=== PATIENT | female | born 1950 | race American Indian/Alaskan Native ===

== ENCOUNTER → 2018-10-04 | Outpatient (CLI) | payer BC ==
[~2018-10-04] MED LIST: IOPAMIDOL 370 MG/ML 200 ML INFUS..BTL INJ ONE; SODIUM CHLORIDE 0.9% 50ML 50 ML ONE
[2018-10-04 12:04] LABS: BLOOD UREA NITROGEN 14 mg/dL (7-26); BUN/CREATININE RATIO 20 (6-25); CREATININE, SERUM 0.71 mg/dL (0.57-1.11); EST GLOMERULAR FILTRATION RATE > 60 ML/MIN (60-)
--- NOTE | 2018-10-04 13:35 | Diagnostic Imaging Report ---
EXAM: CT Chest WITH intravenous contrast 10/04/2018 11:12 AM INDICATION: Reported history of cavitary lung lesion COMPARISON: None TECHNIQUE: Chest was scanned utilizing a multidetector helical scanner from the lung apex through the level of the adrenal glands after administration of IV contrast. Coronal and sagittal reformations were obtained. Routine protocol was performed. IV CONTRAST: 100mL Isovue 370 RADIATION DOSE: Total DLP: 192.6 mGy*cm. Dose modulation, iterative reconstruction, and/or weight based adjustment of the mA/kV was utilized to reduce the radiation dose to as low as reasonably achievable. COMPLICATIONS: None FINDINGS: LINES/ TUBES: None. LUNGS AND AIRWAYS: The central airways are patent. There is an approximately 6.6 x 5.9 cm left apical cavitary mass with associated extensive apical posterior left upper lobe consolidation. There is bilateral upper lobe predominant centrilobular emphysema and areas of paraseptal emphysema. 6 mm right middle lobe anterior subpleural nodule (series 2 image 87) 3 mm right lower lobe nodule (series 2 image 72). PLEURA: The pleural spaces are clear. HEART AND MEDIASTINUM: Normal thyroid gland. Enlarged aortopulmonary window lymph nodes measure up to 14 x 11 mm (series 2 image 52. Right hilar lymphadenopathy to 16 x 10 mm. Prominent left axillary lymph node measuring 11 x 9 mm (series 2 image 22). The heart is not enlarged. No pericardial effusion. Atherosclerotic calcifications of the coronary arteries and thoracic aorta. UPPER ABDOMEN: Limited contrast-enhanced images of the upper abdomen demonstrate no focal liver lesion and no focal abnormality of the partially visualized spleen, pancreatic tail, superior left kidney, or partially visualized left adrenal gland. BONES: No acute osseous injury. Mild diffuse osteopenia. Mild degenerative changes of the visualized spine. SOFT TISSUES: Unremarkable. IMPRESSION: Left apical cavitary mass and extensive apical posterior left upper lobe segmental consolidation. Left axillary and mediastinal lymphadenopathy. In the absence of prior imaging or additional history, these findings may represent an infectious etiology in the proper acute clinical setting. However, in the chronic setting findings would be concerning for malignancy. Scattered bilateral pulmonary nodules as above. RECOMMENDATIONS: Short interval follow-up chest CT (3 months) to assess for interval change versus resolution. Signed by: Maninder Richter MD on 10/04/2018 1:32 PM
--- NOTE | 2018-10-09 08:34 | Diagnostic Imaging Report ---
#[id number] - [id number] #BILATERAL DIGITAL SCREENING MAMMOGRAM WITH CAD: 10/04/2018 CLINICAL: Routine screening. No prior exams were available for comparison. Current study contains 4 films. The tissue of both breasts is extremely dense, which lowers the sensitivity of mammography. Current study was also evaluated with a Computer Aided Detection (CAD) system. Multiple benign appearing calcifications are noted bilaterally. No significant masses, calcifications, or other findings are seen in either breast. IMPRESSION: BENIGN There is no mammographic evidence of malignancy. A 1 year screening mammogram is recommended. The patient will be notified by letter of the results. MANUEL FLORES M.D. ct/penrad:10/06/2018 11:01:38 Senior Security Engineer: Xiomara LANDEROS)(Shilpa), [facility] letter sent: Normal Exam Mammogram BI-RADS: 2 Benign
== END ==
LOC: MAMMO 10:55
PROVIDERS: ATTEND Internal Medicine
DX: Z12.31 Encounter for screening mammogram for malignant neoplasm of breast (principal); J44.9 Chronic obstructive pulmonary disease, unspecified; R91.8 Other nonspecific abnormal finding of lung field
CPT/HCPCS: 36415; 71260; 77067; 82565; 84520; Q9967